=== PATIENT | male | born 1955 | race Two or more races ===

== ENCOUNTER 2017-03-19 07:47 | Emergency (ER) | payer MEDICARE, BC ==
[~2017-03-19] VITALS: Ht 154.9 cm; Wt 90.7 kg
[~2017-03-19 07:47] MED LIST: ZANAFLEX; [UNRECOGNIZED DRUG - CODE]; [UNRECOGNIZED DRUG - OTHER]; [UNRECOGNIZED DRUG - OTHER]
[2017-03-19 08:30] VITALS: BP 126/94
[2017-03-19] MEDS ORDERED: CIPROFLOXACIN HCL 500 MG TAB PO ONE (09:45)
== END 2017-03-19 11:00 | disposition home or self-care (01) ==
LOC: EDBD 07:47 → ER 07:47
DX: N39.0 Urinary tract infection, site not specified (principal); I10 Essential (primary) hypertension